=== PATIENT | female | born 1980 | race American Indian/Alaskan Native ===

== ENCOUNTER 2018-08-26 02:55 | Emergency (ER) | payer OTHER ==
[2018-08-26 03:05] VITALS: BMI 34.3
[2018-08-26] MEDS ORDERED: Naloxone 0.4 mg/ml Inj (Adult) ONE (03:05)
[2018-08-26] MEDS ORDERED: Sodium Bicarbonate (8.4%) 50 Meq Syringe ONE (03:05)
[2018-08-26] MEDS ORDERED: Flumazenil 0.1 mg/ml Inj (5ml) IVP ONE (03:20)
[2018-08-26 03:24] LABS: BASO % 0.3 % (0.0-2.0); EOS # 0.1 K/uL (0.0-0.7); EOS % 1.8 % (0.0-4.0); HEMOGLOBIN 9.3 g/dL (11.0-16.0); LYMPH # 3.8 K/uL (1.0-4.3); LYMPH % 82.3 % (20.0-40.0); MEAN CORPUSCULAR HEMOGLOBIN 26.3 pg (27.0-31.0); MEAN CORPUSCULAR HGB CONC 28.8 g/dL (33.0-37.0); MEAN PLATELET VOLUME 9.9 fL (7.2-11.7); MONO # 0.1 K/uL (0.0-0.8); MONO % 2.5 % (0.0-10.0); NEUT # 0.6 K/uL (1.8-7.0); NEUT % 13.1 % (50.0-75.0); NRBC % 0.4 % (0.0-2.0); RBC 3.54 Mil/uL (3.80-5.20); RED CELL DISTRIBUTION WIDTH 19.1 % (11.5-14.5)
--- NOTE | 2018-08-26 03:25 | C.PDOC ---
History Of Present Illness patient became unresponsive during or after intercourse. As per friend patient occasionally used xanax and PCP. Unsure if she used tonight. He called 911 - found patient asystolic. Unknown down time. CPR initiated - intubated, epi, n arcan, bicarb given by medics. Some ROSC, but upon arrival in the ed, pt was asystolic Time Seen by Provider: 08/26/18 02:55 Chief Complaint (Nursing): Cardiac Arrest History Per: EMS Reason For Code Blue: Full Arrest Circumstances: Brought To ED By EMS Arrest Witnessed By: Other (friend) CPR Initiated Prior To MD Arrival?: Yes Down-Time Before ACLS: Unknown Treatment Initiated Prior To MD Arrival: Yes: CPR, BVM Ventilations, Intubation, IVF, ACLS Medication Initiation, IV Access Medications Given Prior To MD Arrival: Yes: Epinephrine, Sodium Bicarb, Other (calcium, narcan) - Initial Findings Mentation: Unresponsive Respirations: None (Assisted) Pulse: None Rhythm: Asystole Past Medical History Reviewed: Historical Data, Nursing Documentation, Vital Signs - Medical History PMH: Anemia Denies: Chronic Kidney Disease - [facility] Procedures EXCISION OF UTERUS, OPEN APPROACH (07/29/16) Family History: States: No Known Family Hx - Social History Hx Tobacco Use: No Hx Alcohol Use: Yes Hx Substance Use: Yes - Immunization History Hx Tetanus Toxoid Vaccination: No Hx Influenza Vaccination: No Hx Pneumococcal Vaccination: No Review Of Systems Review Of Systems: ROS cannot be obtained secondary to pt's inabilty to answer questions. Physical Exam - Physical Exam Appears: Other (unresponsive, intubated, asystolic) Skin: Warm, Dry Head: Normacephalic Eye(s): bilateral: Other (fixed, dilated) Nose: Normal Throat: Other (7.5 ett) Chest: Symmetrical Cardiovascular: Rhythm Regular (with Iban machine on) Respiratory: Normal Breath Sounds (via ett) Gastrointestinal/Abdominal: Soft Back: Normal Inspection Extremity: No Pedal Edema Extremity: Bilateral: Atraumatic Neurological/Psych: Other (unresponsive) ED Course And Treatment - Laboratory Results Result Diagrams: 08/26/18 03:17 O2 Sat by Pulse Oximetry: 98 Pulse Ox Interpretation: Normal Progress Note: see code sheet. patient pronounced at 3:20 AM. friend at bedside. 3:40 AM went to the room and apparently the patient's significant othe rhad removed the ETT from the patient Disposition Counseled Patient/Family Regarding: Studies Performed, Diagnosis - Disposition Disposition: WITH WITHOUT AUTOPSY Disposition Time: 03:30 Condition: Forms: [id number] ([place]) - Clinical Impression Clinical Impression: Cardiac arrest, Asystole
[2018-08-26 03:44] LABS: MEAN CELL VOLUME 91.1 fL (81.0-99.0); PLATELET COUNT 109 K/uL (130-400); WHITE BLOOD COUNT 4.6 K/uL (4.8-10.8)
[2018-08-26 03:47] VITALS: O2SAT 98
[2018-08-26 03:47] LABS: ALBUMIN 2.4 g/dL (3.5-5.0); CALCIUM 8.8 mg/dl (8.6-10.4)
[2018-08-26 03:48] LABS: CK-MB 0.86 ng/mL (0.0-3.38)
[2018-08-26 04:09] LABS: ANISOCYTOSIS SLIGHT; EOSINOPHIL 1 % (0-4); LYMPHOCYTE 75 % (20-40); MONOCYTE 4 % (0-10); NEUTROPHIL 13 % (50-75); PLATELET ESTIMATE SLIGHTLY DECREASED (NORMAL); POIKILOCYTOSIS SLIGHT; REACTIVE LYMPHOCYTES 7 % (0-0); TOTAL CELLS COUNTED 100; TROPONIN I 0.017 ng/mL (0.00-0.120)
== END 2018-08-26 06:00 ==
LOC: C.ER 02:55
DX: I46.9 Cardiac arrest, cause unspecified (principal)
CPT/HCPCS: 80053; 80320; 84484; 85025; 92950; 99285; J0171; J2310